=== PATIENT | female | born 1960 | race Caucasian/White ===

== ENCOUNTER → 2017-09-13 | Outpatient (CLI) | payer OTHER ==
[~2017-09-13] MED LIST: AMOX-559 PO; CEPH-13 PO; CIPR-345 PO; CYCL10TA29 PO; ESTR10TA4 VG; FAMO20TA28 PO; FLUC150T40 PO; GUAI-561 PO; KET10 PO; KETO120S13 TP; LEVO-85 PO; LEVO125T77 PO; LEVO137T22 PO; LEVO150T72 PO; LEVO150T78 PO; LEVO175T38 PO; LEVO175T42 PO; LEVO200T44 PO; LEVO25TA57 PO; LEVO50TA80 PO; METH4TAB66 PO; NAPR-724 PO; THYR120T10 PO; TRAM-420 PO; VALA100059 PO
== END ==
LOC: RESP 09-11 07:40
PROVIDERS: ATTEND Otolaryngology
DX: G47.33 Obstructive sleep apnea (adult) (pediatric) (principal); R06.83 Snoring

== ENCOUNTER → 2017-09-27 | Outpatient (CLI) | payer OTHER | LOC: LAB 13:39 | PROVIDERS: ATTEND Nurse Practitioner Family | DX: R30.0 Dysuria (principal) | CPT/HCPCS: 81001 ==

== ENCOUNTER → 2017-11-01 | Outpatient (CLI) | payer OTHER ==
[~2017-11-01] MED LIST changes: -NAPR-724 PO; +NAPR500T31 PO
== END ==
LOC: LAB 09:58
PROVIDERS: ATTEND Nurse Practitioner Family
DX: E03.9 Hypothyroidism, unspecified (principal)
CPT/HCPCS: 36415; 84443

== ENCOUNTER → 2017-11-15 | Outpatient (CLI) | payer OTHER ==
--- NOTE | 2017-11-15 16:28 | RADIOLOGY IMAGING REPORT ---
[place] [facility] [place]IENT NAME: Marco Stiles : 1960 MR: [id number] V: [id number] EXAM DATE: ORDERING PHYSICIAN: KARINA MEJIA TECHNOLOGIST: Location: [facility] - [place] Patient: Marco Stiles : 1960 Visit/Account:[id number] Date of Sevice: 11/15/2017 HUMERUS LEFT Indication: left upper arm pain and trauma Comparison: None. FINDINGS: The left humerus demonstrates normal mineralization. Soft tissues are normal. IMPRESSION: Normal left humerus radiograph. Report Dictated By: Chip Montero at 11/15/2017 4:23 PM Report E-Signed By: Chip Montero at 11/15/2017 4:24 PM WSN:[id number]
== END ==
LOC: RAD 15:16
PROVIDERS: ATTEND Nurse Practitioner Family
DX: M79.622 Pain in left upper arm (principal)

== ENCOUNTER → 2018-05-24 | Outpatient (CLI) | payer OTHER ==
[~2018-05-24] MED LIST changes: +ALPR-448 PO; +DULO30CA6 PO; +DULO60CA56 PO; +HYDR-4225 PO; -KETO120S13 TP; +KETO120S14 TP
== END ==
LOC: LAB 14:16
PROVIDERS: ATTEND Nurse Practitioner Family
DX: E03.9 Hypothyroidism, unspecified (principal)
CPT/HCPCS: 36415; 84443

== ENCOUNTER → 2018-08-14 | Outpatient (CLI) | payer OTHER ==
[~2018-08-14] MED LIST changes: +PRED20TA6 PO; +SERT-1 PO
== END ==
LOC: LAB 11:56
PROVIDERS: ATTEND Nurse Practitioner Family
DX: E03.9 Hypothyroidism, unspecified (principal)
CPT/HCPCS: 36415; 84443

== ENCOUNTER → 2018-10-23 | Outpatient (CLI) | payer OTHER | LOC: LAB 11:27 | PROVIDERS: ATTEND Nurse Practitioner Family | DX: E03.9 Hypothyroidism, unspecified (principal) | CPT/HCPCS: 36415; 84443 ==

== ENCOUNTER → 2018-11-14 | Outpatient (CLI) | payer OTHER ==
[~2018-11-14] MED LIST changes: +Return to Work; +SULF-198 PO; +[UNRECOGNIZED DRUG - REMARK]
== END ==
LOC: LAB 13:03
PROVIDERS: ATTEND Nurse Practitioner Family
DX: L02.619 Cutaneous abscess of unspecified foot (principal)
CPT/HCPCS: 87070; 87073

== ENCOUNTER → 2018-12-26 | Outpatient (CLI) | payer OTHER | LOC: LAB 13:50 | PROVIDERS: ATTEND Nurse Practitioner Family | DX: E03.9 Hypothyroidism, unspecified (principal) | CPT/HCPCS: 36415; 84443 ==